=== PATIENT | male | born 1970 | race Caucasian/White ===

== ENCOUNTER 2021-05-07 20:32 | Inpatient (IN) | payer OTHER ==
[2021-05-07] MEDS ORDERED: IBUPROFEN 400 MG TABLET (FP) PO PRN (21:33)
[2021-05-07] MEDS ORDERED: guaiFENesin 200 MG/10 ML 10 ML UNIT-DOSE CUPS PO PRN (21:33)
[2021-05-07] MEDS ORDERED: MAGNESIUM HYDROX 2400MG/30ML ORAL SUSPENSION 30 ML CUP PO PRN (21:33)
[2021-05-07] MEDS ORDERED: ONDANSETRON *ODT* 4 MG TABLET SL PRN (21:33)
[2021-05-07] MEDS ORDERED: ACETAMINOPHEN 325 MG TABLET (FP) PO PRN ×2 (21:33)
[2021-05-07] MEDS ORDERED: P-EPHED 60MG/TRIPROLIDI 2.5MG TABLET PO PRN (21:33)
[2021-05-07] MEDS ORDERED: MENTHOL/PHENOL 1 EACH UD MM PRN (21:33)
[2021-05-07] MEDS ORDERED: BISMUTH SUBSALICYLATE 524 MG/30 ML PO PRN (21:33)
[2021-05-07] MEDS ORDERED: MAG HYDROX/AL HYDROX/SIMETH 30 ML UNIT-DOSE CUP PO PRN (21:33)
[2021-05-07] MEDS ORDERED: MAGNESIUM CITRATE 300 ML BOTTLE PO PRN (21:33)
[2021-05-07] MEDS ORDERED: hydrOXYzine PAMOATE 25 MG CAPSULE (FP) PO PRN (21:33)
[2021-05-07] MEDS ORDERED: NICOTINE POLACRILEX 2 MG GUM BUC PRN (21:33)
[2021-05-07] MEDS ORDERED: METHOCARBAMOL 500 MG TABLET PO PRN (21:33)
[2021-05-07 22:19] VITALS: BMI 38.2
[2021-05-08] MEDS: THIAMINE HCL 100 MG TABLET (FP) PO SCH ×2 (01:34→23:09)
[2021-05-08] MEDS: MELATONIN 5 MG TABLETS PO SCH ×2 (01:34→23:09)
[2021-05-08] MEDS ORDERED: diazePAM 5 MG TABLET PO PRN (09:17)
[2021-05-08] MEDS: PRENATAL VITAMINS W/ FOLIC ACID TABLET (FP) PO SCH (10:38)
[2021-05-08] MEDS: NICOTINE 21 MG/24 HOURS TOPICAL PATCH TD SCH (10:38)
[2021-05-08] MEDS: diazePAM 5 MG TABLET PO SCH ×3 (10:39→23:09)
[2021-05-08 11:05] LABS: HEMATOCRIT 44.8 % (35.4-49); HEMOGLOBIN 14.9 GM/dL (11.7-16.9); MCH 30.2 pg (25.7-33.7); MCHC 33.1 g/dl (32.0-35.9); MEAN CELL VOLUME 91.2 fl (80-96); MEAN PLT VOLUME 8.5 fl (7.5-11.1); PLATELET COUNT 261 10^3/uL (134-434); RBC 4.91 M/mm3 (4.00-5.60); RDW 13.6 % (11.9-15.9)
[2021-05-08 11:19] LABS: BLOOD UREA NITROGEN 21.5 mg/dL (7-18); CALCIUM 8.4 mg/dL (8.5-10.1)
[2021-05-08 11:20] LABS: ALBUMIN 3.3 g/dl (3.4-5.0)
[2021-05-08 11:22] LABS: CREATININE 0.7 mg/dL (0.55-1.3)
[2021-05-08 11:24] LABS: BILIRUBIN,TOTAL 0.4 mg/dL (0.2-1); TOT PROT 6.4 g/dl (6.4-8.2)
[2021-05-08] MEDS: BENZTROPINE MESYLATE 1 MG TABLET PO SCH ×2 (13:36→23:09)
[2021-05-08] MEDS: DIVALPROEX SODIUM 500 MG TABLET E.C. PO SCH ×2 (13:36→23:09)
[2021-05-09] MEDS: diazePAM 5 MG TABLET PO SCH ×4 (06:27→22:08)
[2021-05-09] MEDS: DIVALPROEX SODIUM 500 MG TABLET E.C. PO SCH ×2 (10:39→22:07)
[2021-05-09] MEDS: BENZTROPINE MESYLATE 1 MG TABLET PO SCH ×2 (10:39→22:07)
[2021-05-09] MEDS: PRENATAL VITAMINS W/ FOLIC ACID TABLET (FP) PO SCH (10:39)
[2021-05-09] MEDS: NICOTINE 21 MG/24 HOURS TOPICAL PATCH TD SCH (10:41)
[2021-05-09] MEDS: DOCUSATE SODIUM 100 MG CAPSULE (FP) PO SCH (22:07)
[2021-05-09] MEDS: MELATONIN 5 MG TABLETS PO SCH (22:07)
[2021-05-09] MEDS: THIAMINE HCL 100 MG TABLET (FP) PO SCH (22:08)
[2021-05-10] MEDS: diazePAM 5 MG TABLET PO SCH ×3 (05:20→22:15)
[2021-05-10] MEDS: DOCUSATE SODIUM 100 MG CAPSULE (FP) PO SCH ×2 (10:10→22:15)
[2021-05-10] MEDS: DIVALPROEX SODIUM 500 MG TABLET E.C. PO SCH ×2 (10:10→22:15)
[2021-05-10] MEDS: PRENATAL VITAMINS W/ FOLIC ACID TABLET (FP) PO SCH (10:10)
[2021-05-10] MEDS: BENZTROPINE MESYLATE 1 MG TABLET PO SCH ×2 (10:10→22:15)
[2021-05-10] MEDS: NICOTINE 21 MG/24 HOURS TOPICAL PATCH TD SCH (10:11)
[2021-05-10] MEDS: MELATONIN 5 MG TABLETS PO SCH (22:15)
[2021-05-10] MEDS: THIAMINE HCL 100 MG TABLET (FP) PO SCH (22:15)
[2021-05-11] MEDS ORDERED: diazePAM 5 MG TABLET PO SCH (06:00)
[2021-05-11 09:51] VITALS: BP 148/78; PULSE 83; TEMP 97.3
[2021-05-11] MEDS: NICOTINE 21 MG/24 HOURS TOPICAL PATCH TD SCH (10:15)
[2021-05-11] MEDS: DIVALPROEX SODIUM 500 MG TABLET E.C. PO SCH (10:15)
[2021-05-11] MEDS: BENZTROPINE MESYLATE 1 MG TABLET PO SCH (10:15)
[2021-05-11] MEDS: DOCUSATE SODIUM 100 MG CAPSULE (FP) PO SCH (10:15)
[2021-05-11] MEDS: PRENATAL VITAMINS W/ FOLIC ACID TABLET (FP) PO SCH (10:15)
[2021-05-12] MEDS ORDERED: diazePAM 5 MG TABLET PO ONE (06:00)
== END 2021-05-11 12:46 | disposition home or self-care (01) | DRG 774 ==
LOC: YASAS 20:32 → Y6N 22:45
PROVIDERS: ADMIT Allergy & Immunology; ATTEND Allergy & Immunology
PROC: HZ2ZZZZ Detoxification Services for Substance Abuse Treatment (ICD-10-PCS; principal; 2021-05-07)
DX: F10.230 Alcohol dependence with withdrawal, uncomplicated (principal); F14.20 Cocaine dependence, uncomplicated; F12.20 Cannabis dependence, uncomplicated; F17.213 Nicotine dependence, cigarettes, with withdrawal; F31.13 Bipolar disorder, current episode manic without psychotic features, severe; F19.282 Other psychoactive substance dependence with psychoactive substance-induced sleep disorder; F19.24 Other psychoactive substance dependence with psychoactive substance-induced mood disorder; F20.9 Schizophrenia, unspecified; I10 Essential (primary) hypertension; E66.9 Obesity, unspecified; Z68.38 Body mass index [BMI] 38.0-38.9, adult; Z59.0 Homelessness; Z56.0 Unemployment, unspecified
CPT/HCPCS: 36415; 80053; 85027; 86780; C9803; U0003; U0005

== ENCOUNTER 2021-05-27 14:08 | Inpatient (IN) | payer OTHER ==
[2021-05-27 20:20] VITALS: BMI 37.9
[2021-05-27] MEDS ORDERED: MAGNESIUM CITRATE 300 ML BOTTLE PO PRN (22:18)
[2021-05-27] MEDS ORDERED: hydrOXYzine PAMOATE 25 MG CAPSULE (FP) PO PRN (22:18)
[2021-05-27] MEDS ORDERED: MAGNESIUM HYDROX 2400MG/30ML ORAL SUSPENSION 30 ML CUP PO PRN (22:18)
[2021-05-27] MEDS ORDERED: ACETAMINOPHEN 325 MG TABLET (FP) PO PRN (22:18)
[2021-05-27] MEDS ORDERED: IBUPROFEN 400 MG TABLET (FP) PO PRN (22:18)
[2021-05-27] MEDS ORDERED: MAG HYDROX/AL HYDROX/SIMETH 30 ML UNIT-DOSE CUP PO PRN (22:18)
[2021-05-27] MEDS ORDERED: LOPERAMIDE HCL 2 MG CAPSULE PO PRN (22:18)
[2021-05-27] MEDS ORDERED: P-EPHED 60MG/TRIPROLIDI 2.5MG TABLET PO PRN (22:18)
[2021-05-27] MEDS ORDERED: guaiFENesin 200 MG/10 ML 10 ML UNIT-DOSE CUPS PO PRN (22:18)
[2021-05-27] MEDS: MELATONIN 5 MG TABLETS PO SCH (23:31)
[2021-05-28] MEDS: PRENATAL VITAMINS W/ FOLIC ACID TABLET (FP) PO SCH (09:43)
[2021-05-28] MEDS: hydrOXYzine PAMOATE 50 MG CAPSULE (FP) PO PRN ×3 (09:43→21:08)
[2021-05-28] MEDS: NICOTINE POLACRILEX 2 MG GUM BC PRN ×3 (09:44→21:07)
[2021-05-28 11:34] LABS: HEMATOCRIT 43.6 % (35.4-49); HEMOGLOBIN 14.4 GM/dL (11.7-16.9); MEAN PLT VOLUME 8.4 fl (7.5-11.1); PLATELET COUNT 244 10^3/uL (134-434); RBC 4.79 M/mm3 (4.00-5.60); RDW 13.3 % (11.9-15.9)
[2021-05-28 11:46] LABS: ALBUMIN 3.6 g/dl (3.4-5.0); CALCIUM 8.5 mg/dL (8.5-10.1)
[2021-05-28 11:49] LABS: CREATININE 0.8 mg/dL (0.55-1.3)
[2021-05-28 11:51] LABS: TOT PROT 7.2 g/dl (6.4-8.2)
[2021-05-28 11:54] LABS: BILIRUBIN,TOTAL 0.5 mg/dL (0.2-1)
[2021-05-28] MEDS ORDERED: [UNRECOGNIZED DRUG - OTHER] IM SCH (13:00)
[2021-05-28] MEDS ORDERED: ARIPIPRAZOLE LAUROXIL IM SCH (13:00)
[2021-05-28 16:42] LABS: URINE APPEARANCE CLEAR; URINE BILIRUBIN NEGATIVE (NEGATIVE); URINE COLOR YELLOW; URINE GLUCOSE (UA) NEGATIVE (NEGATIVE); URINE KETONE NEGATIVE (NEGATIVE); URINE LEUK ESTERASE NEGATIVE (NEGATIVE); URINE NITRITE NEGATIVE (NEGATIVE); URINE PROTEIN NEGATIVE (NEGATIVE)
[2021-05-28] MEDS: MELATONIN 5 MG TABLETS PO SCH (21:08)
[2021-05-28] MEDS: THIAMINE HCL 100 MG TABLET (FP) PO SCH (21:08)
[2021-05-29] MEDS ORDERED: MELATONIN 5 MG TABLETS PO ONE (01:30)
[2021-05-29] MEDS: NICOTINE POLACRILEX 2 MG GUM BC PRN ×4 (06:24→16:30)
[2021-05-29] MEDS: hydrOXYzine PAMOATE 50 MG CAPSULE (FP) PO PRN ×4 (06:24→21:41)
[2021-05-29] MEDS ORDERED: ARIPiprazole 5 MG TABLET PO STA ×2 (07:24→07:41)
[2021-05-29] MEDS: PRENATAL VITAMINS W/ FOLIC ACID TABLET (FP) PO SCH (09:33)
[2021-05-29] MEDS: BENZTROPINE MESYLATE 1 MG TABLET PO SCH (21:41)
[2021-05-29] MEDS: DIVALPROEX SODIUM 500 MG TABLET E.C. PO SCH (21:42)
[2021-05-29] MEDS: THIAMINE HCL 100 MG TABLET (FP) PO SCH (21:42)
[2021-05-30] MEDS: MELATONIN 5 MG TABLETS PO PRN ×2 (02:27→22:32)
[2021-05-30] MEDS: hydrOXYzine PAMOATE 50 MG CAPSULE (FP) PO PRN ×3 (06:07→17:33)
[2021-05-30] MEDS: NICOTINE POLACRILEX 2 MG GUM BC PRN ×6 (06:07→23:19)
[2021-05-30] MEDS: BENZTROPINE MESYLATE 1 MG TABLET PO SCH ×2 (09:14→22:31)
[2021-05-30] MEDS: PRENATAL VITAMINS W/ FOLIC ACID TABLET (FP) PO SCH (09:14)
[2021-05-30] MEDS: DIVALPROEX SODIUM 500 MG TABLET E.C. PO SCH ×2 (09:14→22:31)
[2021-05-30] MEDS ORDERED: ARIPIPRAZOLE LAUROXIL 882 MG NR SCH (10:00)
[2021-05-30] MEDS ORDERED: HYDROCHLOROTHIAZIDE 12.5 MG CAPSULE (FP) PO SCH ×2 (11:15→17:51)
[2021-05-30] MEDS: DOCUSATE SODIUM 100 MG CAPSULE (FP) PO SCH ×2 (13:24→22:31)
[2021-05-30] MEDS: THIAMINE HCL 100 MG TABLET (FP) PO SCH (22:31)
[2021-05-31] MEDS: hydrOXYzine PAMOATE 50 MG CAPSULE (FP) PO PRN (06:13)
[2021-05-31] MEDS: NICOTINE POLACRILEX 2 MG GUM BC PRN ×3 (06:13→12:43)
[2021-05-31] MEDS: DOCUSATE SODIUM 100 MG CAPSULE (FP) PO SCH (06:13)
[2021-05-31 07:05] VITALS: TEMP 97.1
[2021-05-31 08:42] VITALS: BP 141/84; PULSE 74
[2021-05-31] MEDS ORDERED: PT OWN MED DRAWER 7, Y5N ONE (08:57)
[2021-05-31] MEDS: BENZTROPINE MESYLATE 1 MG TABLET PO SCH (09:16)
[2021-05-31] MEDS: DIVALPROEX SODIUM 500 MG TABLET E.C. PO SCH (09:16)
[2021-05-31] MEDS: PRENATAL VITAMINS W/ FOLIC ACID TABLET (FP) PO SCH (09:17)
[2021-05-31] MEDS ORDERED: ARIPiprazole 15 MG TABLET PO SCH (10:00)
== END 2021-05-31 12:45 | disposition home or self-care (01) | DRG 772 ==
LOC: YASAS 14:08 → Y3E 21:22
PROVIDERS: ADMIT Allergy & Immunology; ATTEND Allergy & Immunology
PROC: HZ42ZZZ Group Counseling for Substance Abuse Treatment, Cognitive-Behavioral (ICD-10-PCS; principal; 2021-05-27)
DX: F10.20 Alcohol dependence, uncomplicated (principal); F14.20 Cocaine dependence, uncomplicated; F12.20 Cannabis dependence, uncomplicated; F17.210 Nicotine dependence, cigarettes, uncomplicated; F25.9 Schizoaffective disorder, unspecified; F31.13 Bipolar disorder, current episode manic without psychotic features, severe; I10 Essential (primary) hypertension; K59.00 Constipation, unspecified; E66.9 Obesity, unspecified; Z68.38 Body mass index [BMI] 38.0-38.9, adult; Z59.0 Homelessness; Z56.0 Unemployment, unspecified
CPT/HCPCS: 36415; 80053; 80164; 81003; 85027; 86780; C9803; U0003; U0005

== ENCOUNTER 2023-11-30 11:37 | Inpatient (IN) | payer OTHER ==
[2023-11-30 11:55] VITALS: BMI 38.0
[2023-11-30] MEDS ORDERED: hydrOXYzine PAMOATE 25 MG CAPSULE (FP) PO PRN (13:33)
[2023-11-30] MEDS ORDERED: ONDANSETRON *ODT* 4 MG TABLET SL PRN (13:33)
[2023-11-30] MEDS ORDERED: LOPERAMIDE HCL 2 MG CAPSULE PO PRN (13:33)
[2023-11-30] MEDS ORDERED: LORazepam 1 MG TABLET PO PRN (13:33)
[2023-11-30] MEDS ORDERED: MAG HYDROX/AL HYDROX/SIMETH 30 ML UNIT-DOSE CUP PO PRN (13:33)
[2023-11-30] MEDS ORDERED: guaiFENesin 600 MG TABLET.ER (FP) PO PRN (13:33)
[2023-11-30] MEDS ORDERED: DICYCLOMINE HCL 10 MG CAPSULE PO PRN (13:33)
[2023-11-30] MEDS ORDERED: POLYETHYLENE GLYCOL (HEALTHYLAX) 3350 17 GM PACKET PO PRN (13:33)
[2023-11-30] MEDS ORDERED: IBUPROFEN 400 MG TABLET (FP) PO PRN (13:33)
[2023-11-30] MEDS ORDERED: NALOXONE HCL (KLOXXADO) 8 MG SPRAY NS PRN (13:33)
[2023-11-30] MEDS ORDERED: BISMUTH SUBSALICYLATE 262 MG/15 ML BTL PO PRN (13:33)
[2023-11-30] MEDS ORDERED: BENZOCAINE/MENTHOL (CHLORASEPTIC ) LOZENGE MM PRN (13:33)
[2023-11-30] MEDS ORDERED: NALOXONE HCL 0.4 MG/ML VIAL IM PRN (13:33)
[2023-11-30] MEDS ORDERED: BENZONATATE 200 MG CAPSULE PO PRN (13:33)
[2023-11-30] MEDS ORDERED: METHOCARBAMOL 500 MG TABLET PO PRN (13:33)
[2023-11-30] MEDS ORDERED: MAGNESIUM HYDROX 2400MG/30ML ORAL SUSPENSION 30 ML CUP PO PRN (13:33)
[2023-11-30] MEDS: TOLNAFTATE 1% CREAM 15 GM TUBE TP SCH ×2 (14:50→22:30)
[2023-11-30] MEDS: NICOTINE 21 MG/24 HOURS TOPICAL PATCH TD SCH (14:50)
[2023-11-30] MEDS: PRENATAL VITAMINS W/ FOLIC ACID TABLET (FP) PO SCH (14:50)
[2023-11-30] MEDS: LORazepam 2 MG TABLET PO SCH ×2 (17:24→22:30)
[2023-11-30] MEDS: MELATONIN 5 MG TABLETS PO SCH (22:30)
[2023-11-30] MEDS: THIAMINE HCL 100 MG TABLET (FP) PO SCH (22:30)
[2023-12-01] MEDS: LORazepam 2 MG TABLET PO SCH ×4 (04:37→22:20)
[2023-12-01] MEDS: ACETAMINOPHEN 325 MG TABLET (FP) PO PRN (04:38)
[2023-12-01 08:28] LABS: CHLORIDE 105 mmol/L (98-107); POTASSIUM 4.2 mmol/L (3.5-5.1); SODIUM 140 mmol/L (136-145)
[2023-12-01 08:30] LABS: ALBUMIN 3.1 g/dl (3.4-5.0); ANION GAP 6 mmol/L (4-13); CO2 28 mmol/L (21-32); GLUCOSE,RANDOM 92 mg/dL (74-106)
[2023-12-01 08:31] LABS: BLOOD UREA NITROGEN 16.3 mg/dL (7-18)
[2023-12-01 08:33] LABS: CREATININE 0.7 mg/dL (0.55-1.3); SGOT/AST 15 U/L (15-37)
[2023-12-01 08:34] LABS: SGPT/ALT 23 U/L (13-61)
[2023-12-01 08:35] LABS: BILIRUBIN,TOTAL 0.5 mg/dL (0.2-1); TOT PROT 6.2 g/dl (6.4-8.2)
[2023-12-01 08:36] LABS: ALK PHOS 95 U/L (45-117); INR 0.97 (0.83-1.09); PROTHROMBIN TIME (PATIENT) 11.3 SEC (9.7-13.0)
[2023-12-01 08:44] LABS: HEMATOCRIT 43.3 % (35.4-49); HEMOGLOBIN 14.5 GM/dL (11.7-16.9); MCH 30.1 pg (25.7-33.7); MCHC 33.6 g/dl (32.0-35.9); MEAN CELL VOLUME 89.6 fl (80-96); MEAN PLT VOLUME 8.2 fl (7.5-11.1); PLATELET COUNT 251 10^3/uL (134-434); RBC 4.83 M/mm3 (4.00-5.60); RDW 13.4 % (11.9-15.9); WHITE BLOOD COUNT 6.6 K/mm3 (4.0-10.0)
[2023-12-01] MEDS ORDERED: [UNRECOGNIZED DRUG - OTHER] IM ONE (10:00)
[2023-12-01] MEDS ORDERED: ARIPIPRAZOLE LAUROXIL IM ONE (10:00)
[2023-12-01] MEDS: PRENATAL VITAMINS W/ FOLIC ACID TABLET (FP) PO SCH (10:13)
[2023-12-01] MEDS: QUEtiapine FUMARATE 200 MG TABLET PO SCH ×2 (10:14→22:22)
[2023-12-01] MEDS: NICOTINE 21 MG/24 HOURS TOPICAL PATCH TD SCH (10:14)
[2023-12-01] MEDS: DIVALPROEX SODIUM 500 MG TABLET E.C. PO SCH ×2 (10:14→22:21)
[2023-12-01] MEDS: TOLNAFTATE 1% CREAM 15 GM TUBE TP SCH ×2 (10:15→22:27)
[2023-12-01 13:07] LABS: HIV INTERPRETATION NEGATIVE (NEGATIVE)
[2023-12-01 16:51] LABS: PH,URINE 7.5 (5.0-8.0); URINE APPEARANCE CLOUDY; URINE BILIRUBIN NEGATIVE (NEGATIVE); URINE COLOR YELLOW; URINE GLUCOSE (UA) NEGATIVE (NEGATIVE); URINE KETONE TRACE (NEGATIVE); URINE LEUK ESTERASE NEGATIVE (NEGATIVE); URINE NITRITE NEGATIVE (NEGATIVE); URINE PROTEIN NEGATIVE (NEGATIVE)
[2023-12-01] MEDS: THIAMINE HCL 100 MG TABLET (FP) PO SCH (22:22)
[2023-12-01] MEDS: MELATONIN 5 MG TABLETS PO SCH (22:22)
[2023-12-01] MEDS: IBUPROFEN 600 MG TABLET (FP) PO PRN (22:28)
[2023-12-02] MEDS: ACETAMINOPHEN 325 MG TABLET (FP) PO PRN (00:53)
[2023-12-02] MEDS: LORazepam 1 MG TABLET PO SCH ×4 (06:00→22:20)
[2023-12-02] MEDS: TOLNAFTATE 1% CREAM 15 GM TUBE TP SCH ×2 (10:31→22:44)
[2023-12-02] MEDS: PRENATAL VITAMINS W/ FOLIC ACID TABLET (FP) PO SCH (10:32)
[2023-12-02] MEDS: QUEtiapine FUMARATE 200 MG TABLET PO SCH ×2 (10:32→22:20)
[2023-12-02] MEDS: DIVALPROEX SODIUM 500 MG TABLET E.C. PO SCH ×2 (10:32→22:20)
[2023-12-02] MEDS: NICOTINE 21 MG/24 HOURS TOPICAL PATCH TD SCH (10:36)
[2023-12-02] MEDS: DOCUSATE SODIUM 100 MG CAPSULE (FP) PO SCH ×2 (13:24→22:20)
[2023-12-02] MEDS: LACTULOSE 20 GM/30 ML UDC (FOR ORAL USE ONLY) PO SCH ×2 (13:24→22:21)
[2023-12-02] MEDS: THIAMINE HCL 100 MG TABLET (FP) PO SCH (22:20)
[2023-12-02] MEDS: MELATONIN 5 MG TABLETS PO SCH (22:26)
[2023-12-03] MEDS ORDERED: LORazepam 0.5 MG TABLET PO PRN
[2023-12-03] MEDS: LORazepam 0.5 MG TABLET PO SCH ×2 (05:20→10:47)
[2023-12-03] MEDS: DOCUSATE SODIUM 100 MG CAPSULE (FP) PO SCH (05:20)
[2023-12-03] MEDS: LACTULOSE 20 GM/30 ML UDC (FOR ORAL USE ONLY) PO SCH (05:20)
[2023-12-03] MEDS: IBUPROFEN 600 MG TABLET (FP) PO PRN (05:21)
[2023-12-03 09:18] VITALS: BP 150/87; PULSE 112; RESP 18; TEMP 97.4
[2023-12-03] MEDS: QUEtiapine FUMARATE 200 MG TABLET PO SCH (10:37)
[2023-12-03] MEDS: DIVALPROEX SODIUM 500 MG TABLET E.C. PO SCH (10:37)
[2023-12-03] MEDS: PRENATAL VITAMINS W/ FOLIC ACID TABLET (FP) PO SCH (10:37)
[2023-12-03] MEDS: TOLNAFTATE 1% CREAM 15 GM TUBE TP SCH (10:38)
[2023-12-03] MEDS: NICOTINE 21 MG/24 HOURS TOPICAL PATCH TD SCH (10:38)
[2023-12-04] MEDS ORDERED: LORazepam 0.5 MG TABLET PO ONE (05:00)
== END 2023-12-03 10:45 | disposition home or self-care (01) | DRG 774 ==
LOC: YASAS 11:37 → Y6N 14:13
PROVIDERS: ADMIT Allergy & Immunology; ATTEND Surgery
PROC: HZ2ZZZZ Detoxification Services for Substance Abuse Treatment (ICD-10-PCS; principal; 2023-11-30)
DX: F10.230 Alcohol dependence with withdrawal, uncomplicated (principal); F14.20 Cocaine dependence, uncomplicated; F12.20 Cannabis dependence, uncomplicated; F17.210 Nicotine dependence, cigarettes, uncomplicated; F25.9 Schizoaffective disorder, unspecified; F19.282 Other psychoactive substance dependence with psychoactive substance-induced sleep disorder; F31.9 Bipolar disorder, unspecified; I10 Essential (primary) hypertension; R94.31 Abnormal electrocardiogram [ECG] [EKG]; E66.09 Other obesity due to excess calories; Z68.38 Body mass index [BMI] 38.0-38.9, adult; Z59.01 Sheltered homelessness
CPT/HCPCS: 36415; 80053; 80307; 81003; 82140; 82310; 85027; 85610; 86780; 87389; 87635; 93005; 93010

== ENCOUNTER 2024-08-28 13:56 | Inpatient (IN) | payer OTHER ==
[2024-08-28 14:54] VITALS: BMI 37.3
[2024-08-28] MEDS ORDERED: LOPERAMIDE HCL 2 MG CAPSULE PO PRN (15:28)
[2024-08-28] MEDS ORDERED: POLYETHYLENE GLYCOL (HEALTHYLAX) 3350 17 GM PACKET PO PRN (15:28)
[2024-08-28] MEDS ORDERED: MAGNESIUM HYDROX 2400MG/30ML ORAL SUSPENSION 30 ML CUP PO PRN (15:28)
[2024-08-28] MEDS ORDERED: IBUPROFEN 600 MG TABLET (FP) PO PRN (15:28)
[2024-08-28] MEDS ORDERED: BENZONATATE 200 MG CAPSULE PO PRN (15:28)
[2024-08-28] MEDS ORDERED: ONDANSETRON *ODT* 4 MG TABLET SL PRN (15:28)
[2024-08-28] MEDS ORDERED: DICYCLOMINE HCL 10 MG CAPSULE PO PRN (15:28)
[2024-08-28] MEDS ORDERED: guaiFENesin 600 MG TABLET.ER (FP) PO PRN (15:28)
[2024-08-28] MEDS ORDERED: BENZOCAINE/MENTHOL (CHLORASEPTIC ) LOZENGE MM PRN (15:28)
[2024-08-28] MEDS ORDERED: BISMUTH SUBSALICYLATE 524 MG/30 ML PO PRN (15:28)
[2024-08-28] MEDS ORDERED: NALOXONE (NARCAN) HCL 4 MG/0.1 ML SPRAY NS PRN (15:28)
[2024-08-28] MEDS: ACAMPROSATE CALCIUM 333 MG TABLET.DR PO SCH (18:16)
[2024-08-28] MEDS: PRENATAL VITAMINS W/ FOLIC ACID TABLET (FP) PO SCH (18:17)
[2024-08-28] MEDS ORDERED: LORazepam 2 MG TABLET ONE (18:25)
[2024-08-28] MEDS: LORazepam 2 MG TABLET PO SCH (18:27)
[2024-08-28] MEDS: NICOTINE POLACRILEX 2 MG GUM BUC PRN (19:42)
[2024-08-28] MEDS: MELATONIN 5 MG TABLETS PO SCH (22:40)
[2024-08-28] MEDS: THIAMINE 100 MG TABLET PO SCH (22:40)
[2024-08-28] MEDS: LACTULOSE 20 GM/30 ML UDC (FOR ORAL USE ONLY) PO SCH (22:40)
[2024-08-28] MEDS: METHOCARBAMOL 500 MG TABLET PO PRN (22:41)
[2024-08-29] MEDS: LORazepam 1 MG TABLET PO PRN (02:14)
[2024-08-29] MEDS: MAG HYDROX/AL HYDROX/SIMETH 30 ML UNIT-DOSE CUP PO PRN (02:15)
[2024-08-29] MEDS: NICOTINE 14 MG/24 HOURS TOPICAL PATCH TD SCH (10:08)
[2024-08-29 14:39] LABS: HEMATOCRIT 42.8 % (35.4-49); HEMOGLOBIN 14.4 GM/dL (11.7-16.9); MCH 30.5 pg (25.7-33.7); MCHC 33.6 g/dl (32.0-35.9); MEAN CELL VOLUME 90.7 fl (80-96); MEAN PLT VOLUME 9.5 fl (7.5-11.1); PLATELET COUNT 242 10^3/uL (134-434); RBC 4.72 M/mm3 (4.00-5.60); RDW 13.9 % (11.9-15.9); WHITE BLOOD COUNT 9.8 K/mm3 (4.0-10.0)
[2024-08-29 14:40] LABS: CHLORIDE 105 mmol/L (98-107); POTASSIUM 4.3 mmol/L (3.5-5.1); SODIUM 138 mmol/L (136-145)
[2024-08-29 14:53] LABS: ALBUMIN 3.5 g/dl (3.4-5.0); ANION GAP 5 mmol/L (4-13); CALCIUM 8.2 mg/dL (8.5-10.1); CO2 29 mmol/L (21-32); GLUCOSE,RANDOM 100 mg/dL (74-106)
[2024-08-29 14:55] LABS: BLOOD UREA NITROGEN 13.5 mg/dL (7-18)
[2024-08-29 14:57] LABS: CREATININE 0.7 mg/dL (0.55-1.3); SGPT/ALT 22 U/L (13-61)
[2024-08-29 14:58] LABS: BILIRUBIN,TOTAL 0.4 mg/dL (0.2-1); SGOT/AST 15 U/L (15-37); TOT PROT 6.9 g/dl (6.4-8.2)
[2024-08-29 14:59] LABS: ALK PHOS 118 U/L (45-117)
[2024-08-29] MEDS: METOPROLOL TARTRATE 25 MG TABLET (FP) PO ONE (17:47)
[2024-08-29] MEDS: amLODIPine BESYLATE 10 MG TABLET (FP) PO ONE (20:58)
[2024-08-29] MEDS: QUEtiapine FUMARATE 200 MG TABLET PO SCH (21:34)
[2024-08-29] MEDS: DIVALPROEX SODIUM 500 MG TABLET E.C. PO SCH (21:34)
[2024-08-30] MEDS: LORazepam 1 MG TABLET PO SCH (06:00)
[2024-08-30] MEDS: ACETAMINOPHEN 325 MG TABLET (FP) PO PRN (06:27)
[2024-08-30 11:55] LABS: URINE APPEARANCE CLEAR; URINE BILIRUBIN NEGATIVE (NEGATIVE); URINE COLOR YELLOW; URINE GLUCOSE (UA) NEGATIVE (NEGATIVE); URINE KETONE NEGATIVE (NEGATIVE); URINE LEUK ESTERASE NEGATIVE (NEGATIVE); URINE NITRITE NEGATIVE (NEGATIVE); URINE PROTEIN NEGATIVE (NEGATIVE); URINE UROBILINOGEN 0.2 mg/dL (0.2-1.0)
[2024-08-30] MEDS: cloNIDine HCL 0.1 MG TABLET PO PRN (17:00)
[2024-08-31] MEDS ORDERED: LORazepam 0.5 MG TABLET PO PRN
[2024-08-31] MEDS: LORazepam 0.5 MG TABLET PO SCH (05:55)
[2024-08-31] MEDS: hydrOXYzine PAMOATE 25 MG CAPSULE (FP) PO PRN (08:58)
[2024-08-31] MEDS: IBUPROFEN 400 MG TABLET (FP) PO PRN (17:01)
[2024-09-01] MEDS: LORazepam 0.5 MG TABLET PO ONE (05:40)
[2024-09-01 05:58] VITALS: RESP 18
[2024-09-01 09:57] VITALS: BP 159/107; PULSE 90; TEMP 98.2
[2024-09-01] MEDS: NALOXONE (NYS OPIOID OVERDOSE PROGRAM) 4 MG/0.1 ML SPRAY NS PRN (11:23)
== END 2024-09-01 12:06 | disposition home or self-care (01) | DRG 774 ==
LOC: YASAS 13:56 → Y3N 18:25
PROVIDERS: ADMIT Allergy & Immunology; ATTEND Surgery
PROC: HZ2ZZZZ Detoxification Services for Substance Abuse Treatment (ICD-10-PCS; principal; 2024-08-28)
DX: F10.230 Alcohol dependence with withdrawal, uncomplicated (principal); F14.20 Cocaine dependence, uncomplicated; F17.210 Nicotine dependence, cigarettes, uncomplicated; F20.9 Schizophrenia, unspecified; F19.282 Other psychoactive substance dependence with psychoactive substance-induced sleep disorder; F41.9 Anxiety disorder, unspecified; F32.A Depression, unspecified; I83.93 Asymptomatic varicose veins of bilateral lower extremities; I10 Essential (primary) hypertension; Z59.01 Sheltered homelessness
CPT/HCPCS: 36415; 71045-TC-FY; 80053; 80305; 80307; 81003; 85027; 86780; 93005; 93010

== ENCOUNTER 2024-11-26 14:44 | Inpatient (IN) | payer OTHER ==
[2024-11-26 15:40] VITALS: BMI 39.2
[2024-11-26] MEDS ORDERED: MAG HYDROX/AL HYDROX/SIMETH 30 ML UNIT-DOSE CUP PO PRN (16:26)
[2024-11-26] MEDS ORDERED: DICYCLOMINE HCL 10 MG CAPSULE PO PRN (16:26)
[2024-11-26] MEDS ORDERED: MAGNESIUM HYDROX 2400MG/30ML ORAL SUSPENSION 30 ML CUP PO PRN (16:26)
[2024-11-26] MEDS ORDERED: IBUPROFEN 400 MG TABLET (FP) PO PRN (16:26)
[2024-11-26] MEDS ORDERED: LOPERAMIDE HCL 2 MG CAPSULE PO PRN (16:26)
[2024-11-26] MEDS ORDERED: ONDANSETRON *ODT* 4 MG TABLET SL PRN (16:26)
[2024-11-26] MEDS ORDERED: POLYETHYLENE GLYCOL (HEALTHYLAX) 3350 17 GM PACKET PO PRN (16:26)
[2024-11-26] MEDS ORDERED: NALOXONE (NARCAN) HCL 4 MG/0.1 ML SPRAY NS PRN (16:26)
[2024-11-26] MEDS ORDERED: NICOTINE POLACRILEX 2 MG LOZENGE BC PRN (16:26)
[2024-11-26] MEDS ORDERED: P-EPHED 60MG/TRIPROLIDI 2.5MG TABLET PO PRN (16:26)
[2024-11-26] MEDS ORDERED: BISMUTH SUBSALICYLATE 524 MG/30 ML PO PRN (16:26)
[2024-11-26] MEDS ORDERED: BENZONATATE 200 MG CAPSULE PO PRN (16:26)
[2024-11-26] MEDS: IBUPROFEN 600 MG TABLET (FP) PO PRN (18:30)
[2024-11-26] MEDS: METHOCARBAMOL 500 MG TABLET PO PRN (18:31)
[2024-11-26] MEDS: MELATONIN 5 MG TABLETS PO SCH (21:43)
[2024-11-26] MEDS: THIAMINE 100 MG TABLET PO SCH (21:43)
[2024-11-27] MEDS: hydrOXYzine PAMOATE 25 MG CAPSULE (FP) PO PRN (05:47)
[2024-11-27] MEDS ORDERED: diazePAM 5 MG TABLET PO PRN (09:01)
[2024-11-27] MEDS: PRENATAL VITAMINS W/ FOLIC ACID TABLET (FP) PO SCH (11:25)
[2024-11-27] MEDS: ACETAMINOPHEN 325 MG TABLET (FP) PO PRN (11:31)
[2024-11-27] MEDS: guaiFENesin 600 MG TABLET.ER (FP) PO PRN (11:32)
[2024-11-27] MEDS: BENZOCAINE/MENTHOL (CHLORASEPTIC ) LOZENGE MM PRN (11:32)
[2024-11-27] MEDS: diazePAM 5 MG TABLET PO SCH (12:28)
[2024-11-27 14:43] LABS: HEMATOCRIT 43.5 % (35.4-49); HEMOGLOBIN 14.6 GM/dL (11.7-16.9); MCH 30.3 pg (25.7-33.7); MCHC 33.7 g/dl (32.0-35.9); MEAN CELL VOLUME 89.8 fl (80-96); MEAN PLT VOLUME 8.4 fl (7.5-11.1); PLATELET COUNT 224 10^3/uL (134-434); RBC 4.84 M/mm3 (4.00-5.60); RDW 13.4 % (11.9-15.9); WHITE BLOOD COUNT 5.3 K/mm3 (4.0-10.0)
[2024-11-27 14:49] LABS: CHLORIDE 107 mmol/L (98-107); POTASSIUM 4.5 mmol/L (3.5-5.1); SODIUM 141 mmol/L (136-145)
[2024-11-27 14:53] LABS: GLUCOSE,RANDOM 94 mg/dL (74-106)
[2024-11-27 14:55] LABS: CALCIUM 8.5 mg/dL (8.5-10.1)
[2024-11-27 14:57] LABS: ALBUMIN 3.3 g/dl (3.4-5.0)
[2024-11-27 14:58] LABS: BILIRUBIN,TOTAL 0.3 mg/dL (0.2-1); BLOOD UREA NITROGEN 15.2 mg/dL (7-18); SGOT/AST 13 U/L (15-37); SGPT/ALT 18 U/L (13-61); TOT PROT 6.4 g/dl (6.4-8.2)
[2024-11-27 14:59] LABS: ALK PHOS 98 U/L (45-117); ANION GAP 1 mmol/L (4-13); CO2 34 mmol/L (21-32); CREATININE 0.7 mg/dL (0.55-1.3)
[2024-11-27] MEDS: NICOTINE POLACRILEX 2 MG GUM BUC PRN (17:01)
[2024-11-27] MEDS: QUEtiapine FUMARATE 200 MG TABLET PO SCH (22:14)
[2024-11-27] MEDS: DIVALPROEX SODIUM 500 MG TABLET E.C. PO SCH (22:14)
[2024-11-29] MEDS: diazePAM 5 MG TABLET PO SCH (05:22)
[2024-11-29] MEDS: DOCUSATE SODIUM 100 MG CAPSULE (FP) PO SCH (22:18)
[2024-11-30] MEDS: diazePAM 5 MG TABLET PO SCH (06:04)
[2024-11-30 09:35] VITALS: RESP 16
[2024-11-30 14:27] VITALS: BP 148/99; PULSE 90; TEMP 97.3
[2024-11-30] MEDS: NALOXONE (NYS OPIOID OVERDOSE PROGRAM) 4 MG/0.1 ML SPRAY NS SCH (14:30)
[2024-12-01] MEDS ORDERED: diazePAM 5 MG TABLET PO ONE (06:00)
== END 2024-11-30 14:33 | disposition home or self-care (01) | DRG 774 ==
LOC: YASAS 14:44 → Y3N 18:04
PROVIDERS: ADMIT Allergy & Immunology; ATTEND Allergy & Immunology
PROC: HZ2ZZZZ Detoxification Services for Substance Abuse Treatment (ICD-10-PCS; principal; 2024-11-26)
DX: F10.230 Alcohol dependence with withdrawal, uncomplicated (principal); F14.20 Cocaine dependence, uncomplicated; F12.20 Cannabis dependence, uncomplicated; F17.210 Nicotine dependence, cigarettes, uncomplicated; F20.9 Schizophrenia, unspecified; H54.62 Unqualified visual loss, left eye, normal vision right eye; I10 Essential (primary) hypertension; K59.00 Constipation, unspecified
CPT/HCPCS: 36415; 80053; 80305; 80307; 85027

== ENCOUNTER 2025-02-02 16:18 | Inpatient (IN) | payer OTHER ==
[2025-02-02 16:37] VITALS: BMI 38.7
[2025-02-02] MEDS ORDERED: NICOTINE POLACRILEX 2 MG LOZENGE BC PRN (17:17)
[2025-02-02] MEDS ORDERED: MAGNESIUM HYDROX 2400MG/30ML ORAL SUSPENSION 30 ML CUP PO PRN (17:17)
[2025-02-02] MEDS ORDERED: IBUPROFEN 400 MG TABLET (FP) PO PRN (17:17)
[2025-02-02] MEDS ORDERED: P-EPHED 60MG/TRIPROLIDI 2.5MG TABLET PO PRN (17:17)
[2025-02-02] MEDS ORDERED: BISACODYL 5 MG TABLET.DR (FP) PO PRN (17:17)
[2025-02-02] MEDS ORDERED: LOPERAMIDE HCL 2 MG CAPSULE PO PRN (17:17)
[2025-02-02] MEDS ORDERED: MAG HYDROX/AL HYDROX/SIMETH 30 ML UNIT-DOSE CUP PO PRN (17:17)
[2025-02-02] MEDS ORDERED: DOCUSATE SODIUM 100 MG CAPSULE (FP) PO PRN (17:17)
[2025-02-02] MEDS ORDERED: NALOXONE (NARCAN) HCL 4 MG/0.1 ML SPRAY NS PRN (17:17)
[2025-02-02] MEDS ORDERED: POLYETHYLENE GLYCOL (HEALTHYLAX) 3350 17 GM PACKET PO PRN (17:17)
[2025-02-02] MEDS ORDERED: BENZOCAINE/MENTHOL (CHLORASEPTIC ) LOZENGE MM PRN (17:17)
[2025-02-02] MEDS ORDERED: ACETAMINOPHEN 325 MG TABLET (FP) PO PRN (17:17)
[2025-02-02] MEDS ORDERED: BENZONATATE 200 MG CAPSULE PO PRN (17:17)
[2025-02-02] MEDS: THIAMINE 100 MG TABLET PO SCH (22:17)
[2025-02-02] MEDS: MELATONIN 5 MG TABLETS PO SCH (22:17)
[2025-02-02] MEDS: DIVALPROEX SODIUM 500 MG TABLET E.C. PO ONE (22:18)
[2025-02-02] MEDS: NICOTINE POLACRILEX 2 MG GUM BUC PRN (22:18)
[2025-02-02] MEDS: QUEtiapine FUMARATE 200 MG TABLET PO ONE (22:20)
[2025-02-02 23:09] LABS: PH,URINE 6.5 (5.0-8.0); URINE APPEARANCE CLEAR; URINE BILIRUBIN NEGATIVE (NEGATIVE); URINE COLOR DK YELLOW; URINE GLUCOSE (UA) NEGATIVE (NEGATIVE); URINE KETONE TRACE (NEGATIVE); URINE LEUK ESTERASE NEGATIVE (NEGATIVE); URINE NITRITE NEGATIVE (NEGATIVE); URINE PROTEIN TRACE (NEGATIVE)
[2025-02-03] MEDS: QUEtiapine FUMARATE 200 MG TABLET PO SCH (09:38)
[2025-02-03] MEDS: PRENATAL VITAMINS W/ FOLIC ACID TABLET (FP) PO SCH (09:38)
[2025-02-03] MEDS: DIVALPROEX SODIUM 500 MG TABLET E.C. PO SCH (09:38)
[2025-02-03 09:40] LABS: HEMATOCRIT 40.4 % (35.4-49); HEMOGLOBIN 13.7 GM/dL (11.7-16.9); MCH 30.3 pg (25.7-33.7); MCHC 33.9 g/dl (32.0-35.9); MEAN CELL VOLUME 89.3 fl (80-96); PLATELET COUNT 267 10^3/uL (134-434); RBC 4.53 M/mm3 (4.00-5.60); RDW 14.1 % (11.9-15.9); WHITE BLOOD COUNT 6.8 K/mm3 (4.0-10.0)
[2025-02-03 09:41] LABS: POTASSIUM 4.3 mmol/L (3.5-5.1)
[2025-02-03 10:05] LABS: CREATININE 0.7 mg/dL (0.55-1.3)
[2025-02-03 10:06] LABS: BLOOD UREA NITROGEN 19.5 mg/dL (7-18)
[2025-02-03 10:07] LABS: BILIRUBIN,TOTAL 0.2 mg/dL (0.2-1); TOT PROT 6.3 g/dl (6.4-8.2)
[2025-02-03 10:08] LABS: CALCIUM 8.5 mg/dL (8.5-10.1)
[2025-02-04] MEDS: guaiFENesin 600 MG TABLET.ER (FP) PO PRN (05:42)
[2025-02-10] MEDS: ARIPiprazole 10 MG TABLET PO SCH (09:58)
[2025-02-14] MEDS: ARIPIPRAZOLE LAUROXIL 882 MG/3.2 ML IM ONE (10:27)
[2025-02-15] MEDS: IBUPROFEN 600 MG TABLET (FP) PO PRN (18:41)
[2025-02-16 06:46] VITALS: BP 124/78; PULSE 74; RESP 18; TEMP 97
== END 2025-02-16 10:08 | disposition home or self-care (01) | DRG 772 ==
LOC: YASAS 16:18 → Y3NR 20:30 → Y5N 02-05 12:12
PROVIDERS: ADMIT Psychiatry & Neurology Pain Medicine; ATTEND Allergy & Immunology
PROC: HZ42ZZZ Group Counseling for Substance Abuse Treatment, Cognitive-Behavioral (ICD-10-PCS; principal; 2025-02-02)
DX: F10.20 Alcohol dependence, uncomplicated (principal); F14.20 Cocaine dependence, uncomplicated; F12.20 Cannabis dependence, uncomplicated; F17.210 Nicotine dependence, cigarettes, uncomplicated; F19.282 Other psychoactive substance dependence with psychoactive substance-induced sleep disorder; F25.0 Schizoaffective disorder, bipolar type; F41.9 Anxiety disorder, unspecified; F32.A Depression, unspecified; H54.62 Unqualified visual loss, left eye, normal vision right eye; I10 Essential (primary) hypertension; Z59.01 Sheltered homelessness
CPT/HCPCS: 36415; 80053; 80164; 80305; 80307; 81003; 85027; 86780; 87811; J1944